=== PATIENT | male | born 1980 | race Caucasian/White ===

== ENCOUNTER 2018-02-15 09:40 | Inpatient (IN) | payer MEDICAID ==
[~2018-02-15] VITALS: Ht 182.9 cm; Wt 102.3 kg
[2018-02-15 09:58] VITALS: BP 148/88
[2018-02-15 10:18] LABS: ABSOLUTE BASOPHILS 0.1 thou/uL (0.0-0.2); ABSOLUTE LYMPHOCYTES 1.8 thou/uL (0.8-5.3); ABSOLUTE MONOCYTES 0.4 thou/uL (0.0-1.2); ABSOLUTE NEUTROPHILS 8.6 thou/uL (1.6-8.1); EOSINOPHILS 0.4 %; HEMATOCRIT 46.9 % (42.0-52.0); HEMOGLOBIN 16.3 gm/dL (14.0-18.0); LYMPHOCYTES 16.6 %; MCH 32.7 pg (26.0-34.0); MCHC 34.8 g/dL (28.0-37.0); MCV 93.9 fL (80.0-100.0); MONOCYTES 3.7 %; MPV 6.6 fl. (7.2-11.1); NUCLEATED RBCS 0 /100WBC; PLATELET COUNT* 190 thou/uL (150-400); POLYS 78.3 %; RDW-CV 15.6 % (10.5-14.5); WBC 10.9 thou/uL (4.0-11.0)
[2018-02-15 10:29] LABS: APTT 27.9 Seconds (25.0-31.3); PROTIME 9.7 Seconds (9.20-11.50)
[2018-02-15 10:30] LABS: ALBUMIN 4.3 g/dL (3.4-5.0); CALCIUM 8.8 mg/dL (8.5-10.1); POTASSIUM 3.3 mmol/L (3.5-5.1); TOTAL BILIRUBIN 0.8 mg/dL (<0.1-1.0); TOTAL PROTEIN 8.4 g/dL (6.4-8.2)
[2018-02-15 13:13] LABS: URINE BILIRUBIN NEGATIVE (Negative); URINE BLOOD 2+ (Negative); URINE CLARITY CLEAR; URINE COLOR YELLOW; URINE GLUCOSE-RANDOM NEGATIVE (Negative); URINE KETONES 2+ (Negative); URINE LEUKOCYTES-REFLEX NEGATIVE (Negative); URINE NITRITE-REFLEX NEGATIVE (Negative); URINE PROTEIN 2+ (Negative); URINE UROBILINOGEN 0.2 E.U./dl (0.2-1.0)
[2018-02-15 13:33] LABS: BACTERIA-REFLEX 1-9 Few /HPF (None Seen); MUCUS None Seen strn/LPF (None Seen); SQUAMOUS 0-3 Few /LPF (0-3); URINE RBC 3-10 Few /HPF (0-2); URINE WBC-REFLEX 0-5 Rare /HPF (0-5)
[2018-02-15 13:34] LABS: CRYSTALS None Seen /LPF (None Seen); HYALINE CASTS 4-10 Moderate /LPF (None Seen)
--- NOTE | 2018-02-15 14:33 | NUR ---
CIWA SCORE AT THIS TIME 0. PT SLEEPING IN ROOM.
[2018-02-15 14:38] VITALS: BP 123/70
--- NOTE | 2018-02-15 14:42 | NUR ---
GI NURSE HERE AT THIS TIME.
[2018-02-15 15:54] VITALS: BP 121/68
[2018-02-15 16:14] LABS: AMP/METHAMP Negative (Negative); BARBITURATES Negative (Negative); BENZODIAZEPINES Negative (Negative); COCAINE Negative (Negative); METHADONE Negative (Negative); OPIATES Negative (Negative); PCP Negative (Negative); THC Negative (Negative)
[2018-02-15 18:50] VITALS: BP 127/78
[2018-02-15 20:00] VITALS: BP 133/84
[2018-02-15 23:57] VITALS: BP 131/87
[2018-02-16 04:00] VITALS: BP 114/77
[2018-02-16 05:32] LABS: ABSOLUTE EOSINOPHILS 0.1 thou/uL (0.0-0.7); ABSOLUTE LYMPHOCYTES 1.5 thou/uL (0.8-5.3); ABSOLUTE MONOCYTES 0.3 thou/uL (0.0-1.2); ABSOLUTE NEUTROPHILS 3.4 thou/uL (1.6-8.1); BASOPHILS 0.3 %; CALCIUM 7.5 mg/dL (8.5-10.1); CREATININE 0.9 mg/dL (0.6-1.3); EOSINOPHILS 2.2 %; HEMATOCRIT 38.3 % (42.0-52.0); LYMPHOCYTES 28.2 %; MAGNESIUM 2.1 mg/dL (1.8-2.4); MCH 32.9 pg (26.0-34.0); MCHC 35.2 g/dL (28.0-37.0); MCV 93.7 fL (80.0-100.0); MONOCYTES 4.8 %; MPV 7.2 fl. (7.2-11.1); NUCLEATED RBCS 0 /100WBC; POLYS 64.5 %; RBC 4.09 mil/uL (4.50-6.00); RDW-CV 15.3 % (10.5-14.5); WBC 5.3 thou/uL (4.0-11.0)
[2018-02-16 05:42] LABS: POTASSIUM 2.9 mmol/L (3.5-5.1)
[2018-02-16 06:17] LABS: HEMOGLOBIN 13.5 gm/dL (14.0-18.0)
[2018-02-16 06:18] LABS: PLATELET COUNT* 95 thou/uL (150-400)
[2018-02-16 07:30] VITALS: BP 115/72
--- NOTE | 2018-02-16 07:49 | NUR ---
PATIENT RESTED IN BED, PATIENT DID NOT SHOW SIGNS OF DISTRESS. POTASSIUM LOW, WILL BE REPLACED, DOCTOR NOTIFIED. NO ACUTE CHANGES. FALL PRECAUTIONS IN PLACE.
--- NOTE | 2018-02-16 11:00 | NUR ---
RECEIVED PT CARE 0700. PATIENT IS ALERT AND ORIENTED X4. VSS. BUSINESS ANALYSIS PROFESSIONAL TRACING SR. PATIENT DENIES ANY SOA. O2 SAT 96% ON ROOM AIR. UP STANDBY ASSIST IN ROOM WITH BATHROOM PRIVILEDGES. GAIT IS STEADY. AM ASSESSMENT CHARTED. MEDS PER MAR. IV ATIVAN GIVEN WITH GOOD RELIEF FOR ANXIETY AND WITHDRAW. PATIENT UPDATED ON PLAN OF CARE. ADVANCED TO REGULAR DIET. CALL LIGHT WITHIN REACH. WILL CONTINUE TO MONITOR.
--- NOTE | 2018-02-16 12:07 | NUR ---
WOUND CARE NOTE: CONSULT RECEIVED FOR HIDRADENITIS. PATIENT PRESENTS WITH A DERMATOLOGICAL CONDITION HIDRADENITIS, PATIENT STATES HE HAS A LYE BOILER AND LONG HE IS ON HIS MEDICATION, IT IS PRETTY WELL MANAGED. LEFT AXILLA AND LEFT BUTTOCK WERE ASSESSED. LEFT AXILLA WITHOUT OPEN DRAINING WOUNDS. PRESENCE OF SCAR TISSUE, PATIENT STATES THEY HAVE OPENED THESE UP AND DRAINED THEM BEFORE. LEFT BUTTOCK WITH A FIRM RAISED, RED LESION. THIS IS WITHOUT DRAINAGE, BUT MAY RUPTURE. PATIENT ALSO SHOWED ME A LESION INSIDE HIS MOUTH. THIS PRESENTS ON THE HARD PALATE, AT THE BACK OF HIS MOUTH. THE LESION MATCHES THE COLOR OF HIS ORAL MUCOSA, BUT DOES HAVE MULTIPLE, FINGER-LIKE GROWTHS OFF OF THE MAIN LESION. PATIENT STATES THIS GETS SMALLER THEN BIGGER AGAIN, AND STATES IT 'FLAPS' WHEN MOVED. ALSO STATES IT GAGS HIM AT TIMES. DENTITION IS POOR. EDUCATED PATIENT TO HAVE THIS LOOKED AT SOONER THAN LATER, COMMUNICATED UNDERSTANDING. ALSO NOTIFIED PATIENT'S RN TO SEE IF PHYSICIANS WILL LOOK AT, SPOT IS CONCERNING. RECOMMEND FOLLOW UP WITH HIS LYE BOILER AND/OR PCP-LESION IN MOUTH SMOKING CESSATION-WILL HELP REDUCE FLARE UPS OF CONDITION WILL SIGN OFF AT THIS TIME, PLEASE RECONSULT IF NEEDED.
[2018-02-16 12:18] VITALS: BP 129/82
--- NOTE | 2018-02-16 15:15 | NUR ---
CM ASSESSMENT: Pt is A&O. Resides at home. Independent with ADLs. No DME. No hx of HH or SNF. GI following. Plans to return home once medically stable for dc. Following.
[2018-02-16 15:48] VITALS: BP 118/72
--- NOTE | 2018-02-16 16:31 | NUR ---
OT RECEIVED ORDERS TO EVAL AND TREAT. AFTER DISCUSSION WITH NSG AND READING NOTES IN CHART, PT CURRENTLY HAS BATHROOM PRIVILEDGES AND IS UP WITH SUP A. NO OT SERVICES ARE NEEDED AT THIS TIME. DC OT
--- NOTE | 2018-02-16 17:17 | NUR ---
ORDER RECEIVED. PATIENT CURRENTLY INDEPENDENT WITH MOBILITY. NO SKILLED P.T. RECOMMENDED. DISCHARGED FROM P.T. WILL BENEFIT FROM BEING UP AD JESSY IN ROOM OR HALLS AT RN'S DISCRETION. VIRGILIO HSU, MPT
--- NOTE | 2018-02-16 18:21 | NUR ---
PATIENT PROGRESSING TOWARDS GOALS. TOLERATING A REGULAR DIET WITHOUT COMPLAINTS OF NAUSEA OR VOMITING. ATIVAN GIVEN WITH GOOD ANXIETY RELIEF. IVF INFUSING. C/O HEADACHE THIS AFTERNOON. PRN TYLENOL GIVEN WITH PARTIAL RELIEF. HOURLY ROUNDING CHARTED. CALL LIGHT WITHIN REACH. WILL CONTINUE TO MONITOR.
[2018-02-16 20:00] VITALS: BP 133/90
[2018-02-17] VITALS: BP 129/96
[2018-02-17 04:00] VITALS: BP 145/92
[2018-02-17 04:43] LABS: ABSOLUTE EOSINOPHILS 0.2 thou/uL (0.0-0.7); ABSOLUTE LYMPHOCYTES 1.7 thou/uL (0.8-5.3); ABSOLUTE MONOCYTES 0.3 thou/uL (0.0-1.2); ABSOLUTE NEUTROPHILS 3.3 thou/uL (1.6-8.1); BASOPHILS 0.4 %; EOSINOPHILS 2.9 %; HEMATOCRIT 39.9 % (42.0-52.0); HEMOGLOBIN 13.6 gm/dL (14.0-18.0); LYMPHOCYTES 30.7 %; MCH 32.6 pg (26.0-34.0); MCHC 34.1 g/dL (28.0-37.0); MCV 95.7 fL (80.0-100.0); MONOCYTES 5.7 %; MPV 7.7 fl. (7.2-11.1); NUCLEATED RBCS 0 /100WBC; PLATELET COUNT* 82 thou/uL (150-400); POLYS 60.3 %; RBC 4.17 mil/uL (4.50-6.00); RDW-CV 15.3 % (10.5-14.5); WBC 5.5 thou/uL (4.0-11.0)
[2018-02-17 05:14] LABS: CALCIUM 8.1 mg/dL (8.5-10.1); CREATININE 0.7 mg/dL (0.6-1.3); MAGNESIUM 2.3 mg/dL (1.8-2.4); PHOSPHORUS* 2.1 mg/dL (2.5-4.9); POTASSIUM 3.8 mmol/L (3.5-5.1); TOTAL BILIRUBIN 0.5 mg/dL (<0.1-1.0); TOTAL PROTEIN 6.3 g/dL (6.4-8.2)
--- NOTE | 2018-02-17 06:15 | NUR ---
PATIENT RESTED IN BED. PATIENT DID NOT SHOW SIGNS OF DISTRESS, NO ACUTE CHANGES. FALL PRECAUTIONS IN PLACE, BED ALARM ON, HOURLY ROUNDING OBSERVED, CALL LIGHT WITHIN REACH.
[2018-02-17 08:00] VITALS: BP 142/94
[2018-02-17 09:58] VITALS: BP 145/92
--- NOTE | 2018-02-17 10:01 | NUR ---
Pt discharging to home today. Pt asked CM to reschedule his pain clinic appt and dermat[phone] [facility] 03/01/18 at 920am/[phone] Cab voucher provided for dc transportation.
[2018-02-17] MEDS ORDERED: PROTONIX40 M1 PO (10:40)
[2018-02-17] MEDS ORDERED: CARAFATE 1 GM TA1 G1 PO (10:41)
--- NOTE | 2018-02-17 12:03 | NUR ---
I ASSUMED CARE OF THE PATIENT AT 0700. HE IS ALERT AND ORIENTED X4 AND IS UP AD JESSY. BED IS IN THE LOW LOCKED POSITION AND CALL LIGHT IS IN REACH. HOURLY ROUNDING WAS COMPLETED AND PATIENT NEEDS WERE MET. PAIN WAS MANAGED WITH PRN MEDICATIONS. PATIENT SCORED A 3 ON C1WA. A CAB VOUCHER WAS USED FOR DISCHARGE AT 1115 TO [facility]. [facility] RESCHEDULED MISSED APPOINTMENTS AND THEY WERE NOTED IN THE DISCHARGE. HE IS PROGRESSING TOWARD GOALS. IV WAS REMOVED INTACT AND HOMEOSTASIS WAS ACHEIVED. WILL CONTINUE TO MONITOR PATIENT.
[2018-02-17 21:12] LABS: HEPATITIS B SURFACE AG Negative (Negative)
[2018-02-17] MEDS ORDERED: ZOFRAN ODT4 MG SUBLING (21:59)
--- NOTE | 2018-03-04 13:09 | CON ---
[address] [address] CONSULTATION Name: JANETTSHIRAWILLAM CHILDERS Room: [address] IN M.R.#: [id number] Admission: 02/15/18 Attend Phys: Endy Bennett MD Discharge: 02/17/18 Date of : 76 Report #: [id number] THIS REPORT FOR: //name// CC: Endy Bennett FAM physician/PCP DATE OF SERVICE: 02/15/2018 ADDENDUM Consult number is [id number]. I personally seen and examined the patient and reviewed labs. The patient with history of alcoholism who reports that he has not been drinking since August, but he started drinking yesterday. He started getting sick to his stomach and reports that had hematemesis, nausea, vomiting, which persisted and some melanotic stool. He also has elevated LFTs. He currently denies any abdominal pain or any hematochezia. We will go ahead and perform our upper endoscopy to rule out gastroduodenal ulcers versus gastroesophageal varices. We will continue to monitor H and H and transfuse as needed. We will further workup his abnormal LFTs. <ELECTRONICALLY SIGNED> By: Renae Odonnell MD 03/04/18 1309 1707 [id number] Odonnell MD /nt
--- NOTE | 2018-03-04 13:09 | CON ---
[address] [address] CONSULTATION Name: WILLAM BRIZUELA Room: [address] IN M.R.#: [id number] Admission: 02/15/18 Attend Phys: Endy Bennett MD Discharge: 02/17/18 Date of : 76 Report #: [id number] THIS REPORT FOR: //name// CC: Endy Bennett [facility] physician/PCP DICTATED BY: Almita Tirado [facility] DATE OF SERVICE: 02/15/2018 The patient does not have a PCP. Please note at the time of this dictation, the patient was seen and physically examined by myself. REASON FOR CONSULTATION: Hematemesis. HISTORY OF PRESENT ILLNESS: This is a 38-year-old male who presented to the Emergency Room, started having nausea and vomiting that started last night and worsening this morning and then he also started vomiting up some blood. The patient denies fever, chills, chest pain, or any diarrhea; however, once he was in the ER, he did have a very melanic stool, he states. Yesterday, the patient had a relapse and he was drinking and he drank 3 pints of vodka. He had not had a drink since last August, he had been clean since that time. The patient states he has had upper and lower scopes done, he believes at [facility] and at [facility] with the last one being at [facility], he thinks about a year ago and was told all was normal. ALLERGIES: NORCO. MEDICATIONS FROM HOME: None. PAST MEDICAL HISTORY: Hidradenitis. PAST SURGICAL HISTORY: Negative. FAMILY HISTORY: Negative for any GI or female cancers. SOCIAL HISTORY: He does smoke cigarettes daily. He does smoke marijuana within the last 3 months and alcohol. He has had a relapse in which he drinks 3 pints of alcohol yesterday, vodka. REVIEW OF SYSTEMS: Twelve-point review of systems essentially negative except what is mentioned in the HPI. PHYSICAL EXAMINATION: VITAL SIGNS: Temperature 35.9, pulse 96, respirations 18, blood pressure 117/73. [place] [address] CONSULTATION Name: JANETTWILLAM RAMIREZ Ivan Room: [address]#: [id number] Admission: 02/15/18 Attend Phys: Endy Bennett MD Discharge: 02/17/18 Date of : 76 Report #: [id number] HEART: Regular rate and rhythm. LUNGS: Clear. ABDOMEN: Soft, positive bowel sounds in all 4 quadrants with no masses or tenderness noted. Slight tremor noted of his upper extremities. LABORATORY DATA: Hemoglobin is 16.3 that was on admission, hematocrit 46.9, white count is 10.9, platelets 190. Sodium 139, potassium 3.3, chloride 95, CO2 of 20, BUN is 13, creatinine is 1, GFR is 83 and glucose is 126, alcohol was 125. Lipase was 308. Total bilirubin 0.8, alkaline phosphatase 97, ALT 102, AST is 85. CT of the abdomen and pelvis showed hepatic steatosis with esophageal wall thickening that was noted. IMPRESSION: 1. Hematemesis. 2. Nausea and vomiting. 3. Melenic stool. 4. Elevated LFTs. 5. Alcohol abuse. PLAN: 1. EGD today with Dr. Odonnell. 2. Need to abstain from alcohol altogether, reinforce the patient. 2. Further recommendations to be made after the procedure has been performed. 3. Labs, CBC and CMP in the a.m. Thank you for allowing us to participate in this patient's care. Please do not hesitate to call with any questions in regard to this consult. <ELECTRONICALLY SIGNED> By: Renae Odonnell MD 03/04/18 1309 1522 [id number] Odonnell MD /nt
== END 2018-02-17 11:36 | disposition home or self-care (01) | DRG 377 ==
LOC: M.ERS 09:40 → M.TBA-CV 10:37 → M.TBA-ER 15:40 → M.2W 18:37
PROVIDERS: Family Medicine; Internal Medicine Gastroenterology; ADMIT Internal Medicine
DX: K92.2 Gastrointestinal hemorrhage, unspecified (principal); G92 Toxic encephalopathy; E87.6 Hypokalemia; E86.0 Dehydration; K21.0 Gastro-esophageal reflux disease with esophagitis; K44.9 Diaphragmatic hernia without obstruction or gangrene; R25.1 Tremor, unspecified; L73.2 Hidradenitis suppurativa; F10.229 Alcohol dependence with intoxication, unspecified; F17.210 Nicotine dependence, cigarettes, uncomplicated; Z88.8 Allergy status to other drugs, medicaments and biological substances

== ENCOUNTER 2018-02-17 21:27 | Emergency (ER) | payer MEDICAID ==
[~2018-02-17] VITALS: Ht 182.9 cm; Wt 100.2 kg
[~2018-02-17 21:27] MED LIST: CARAFATE 1 GM TA1 G1 PO; PROTONIX40 M1 PO
[2018-02-17] MEDS ORDERED: ZOFRAN ODT4 MG SUBLING (21:59)
[2018-02-17 22:23] VITALS: BP 140/88
== END 2018-02-17 22:23 | disposition home or self-care (01) ==
LOC: M.ERS 21:27
DX: R11.0 Nausea (principal); F41.9 Anxiety disorder, unspecified; F17.210 Nicotine dependence, cigarettes, uncomplicated; Z88.5 Allergy status to narcotic agent; Z88.6 Allergy status to analgesic agent

== ENCOUNTER 2018-02-18 17:03 | Emergency (ER) | payer MEDICAID ==
[~2018-02-18] VITALS: Ht 205.7 cm; Wt 99.8 kg
[~2018-02-18 17:03] MED LIST changes: +ZOFRAN ODT4 MG SUBLING
[2018-02-18 17:50] LABS: ICTOTEST (BILI CONFIRMATORY) Negative (Negative); URINE BILIRUBIN 1+ (Negative); URINE BLOOD TRACE (Negative); URINE CLARITY CLEAR; URINE COLOR YELLOW; URINE GLUCOSE-RANDOM NEGATIVE (Negative); URINE KETONES NEGATIVE (Negative); URINE LEUKOCYTES-REFLEX NEGATIVE (Negative); URINE NITRITE-REFLEX NEGATIVE (Negative); URINE PROTEIN 1+ (Negative); URINE SPECIFIC GRAVITY 1.025 (1.005-1.030); URINE UROBILINOGEN 0.2 E.U./dl (0.2-1.0)
[2018-02-18 18:28] LABS: ABSOLUTE EOSINOPHILS 0.1 thou/uL (0.0-0.7); ABSOLUTE LYMPHOCYTES 1.3 thou/uL (0.8-5.3); ABSOLUTE MONOCYTES 0.3 thou/uL (0.0-1.2); ABSOLUTE NEUTROPHILS 4.4 thou/uL (1.6-8.1); BASOPHILS 0.5 %; HEMATOCRIT 43.8 % (42.0-52.0); HEMOGLOBIN 15.2 gm/dL (14.0-18.0); LYMPHOCYTES 21.6 %; MCH 33.1 pg (26.0-34.0); MCHC 34.8 g/dL (28.0-37.0); MCV 95.1 fL (80.0-100.0); MONOCYTES 4.6 %; MPV 8.4 fl. (7.2-11.1); NUCLEATED RBCS 0 /100WBC; PLATELET COUNT* 92 thou/uL (150-400); POLYS 71.3 %; RDW-CV 15.5 % (10.5-14.5); WBC 6.2 thou/uL (4.0-11.0)
[2018-02-18 18:31] LABS: CALCIUM 8.9 mg/dL (8.5-10.1); CREATININE 0.8 mg/dL (0.6-1.3); POTASSIUM 3.7 mmol/L (3.5-5.1)
[2018-02-18 18:36] LABS: ALBUMIN 3.9 g/dL (3.4-5.0); TOTAL BILIRUBIN 0.5 mg/dL (<0.1-1.0); TOTAL PROTEIN 7.6 g/dL (6.4-8.2)
[2018-02-18 20:29] LABS: AMP/METHAMP Negative (Negative); BARBITURATES Negative (Negative); BENZODIAZEPINES Negative (Negative); COCAINE Negative (Negative); METHADONE Negative (Negative); OPIATES POSITIVE (Negative); PCP Negative (Negative); THC POSITIVE (Negative)
[2018-02-18 20:45] VITALS: BP 122/89
== END 2018-02-18 20:45 | disposition home or self-care (01) ==
LOC: M.ERS 17:03
PROVIDERS: Nurse Practitioner Family; Personal Emergency Response Attendant
DX: R10.9 Unspecified abdominal pain (principal); F17.210 Nicotine dependence, cigarettes, uncomplicated; Z88.5 Allergy status to narcotic agent; Z88.6 Allergy status to analgesic agent